=== PATIENT | male | born 1955 | race Caucasian/White ===

== ENCOUNTER 2016-11-30 22:26 | Inpatient (IN) | payer OTHER ==
[~2016-11-30] VITALS: Ht 167.6 cm; Wt 69.5 kg
[2016-12-01] VITALS (12 sets, daily range): BP systolic 122–135; BP diastolic 70–81; PULSE 58–82; RESP 18; Ht 167.6 cm; Wt 69.5 kg
[2016-12-01] MEDS ORDERED: ALBU2.5V3 NEB (01:37)
[2016-12-01] MEDS ORDERED: ADV25050 INHALATION (01:37)
[2016-12-01] MEDS ORDERED: DOCUSATE SODIUM 100 MG CAP PO PRN (02:30)
[2016-12-01] MEDS ORDERED: ZOLPIDEM 5 MG TAB PO PRN (02:30)
[2016-12-01] MEDS ORDERED: LORAZEPAM 0.5 MG TAB PO PRN (02:30)
[2016-12-01] MEDS ORDERED: HYDROCODONE/APAP (5/325) TAB PO PRN (02:30)
[2016-12-01] MEDS ORDERED: NACL 0.9% 3 ML SYG IV SCH (02:30)
[2016-12-01] MEDS ORDERED: ONDANSETRON 4 MG TAB PO PRN (02:30)
[2016-12-01] MEDS ORDERED: ACETAMINOPHEN 325 MG TAB PO PRN (02:30)
[2016-12-01] MEDS: FAMOTIDINE 20 MG TAB PO SCH ×3 (03:02→22:14)
[2016-12-01 08:32] LABS: ABNORMAL IP MESSAGE 1; BASOPHILS % 0.4 % (0.0-2.0); EOSINOPHILS # 0.2 10^3/ul (0.0-0.5); EOSINOPHILS % 2.7 % (0.0-7.0); HEMATOCRIT 42.5 % (42.0-52.0); HEMOGLOBIN 13.7 g/dl (14.0-18.0); LYMPHOCYTES # 1.3 10^3/ul (0.8-2.9); MEAN CORPUSCULAR HEMOGLOBIN 28.3 pg (29.0-33.0); MEAN CORPUSCULAR HGB CONC 32.2 g/dl (32.0-37.0); MEAN CORPUSCULAR VOLUME 87.8 fl (82.0-101.0); MEAN PLATELET VOLUME 13.5 fl (7.4-10.4); MONOCYTE # 0.9 10^3/ul (0.3-0.9); MONOCYTES % 11.7 % (0.0-11.0); NEUTROPHIL # 5.1 10^3/ul (1.6-7.5); NEUTROPHILS % 67.7 % (39.0-77.0); PLATELET COUNT 175 10^3/UL (140-415); POSITIVE DIFF @See below; RED BLOOD COUNT 4.84 10^6/ul (4.70-6.10); RED CELL DISTRIBUTION WIDTH 12.3 % (11.5-14.5); WHITE BLOOD COUNT 7.5 10^3/ul (4.8-10.8)
[2016-12-01] MEDS: ENOXAPARIN 40 MG/0.4 ML SYG SC SCH (08:32)
[2016-12-01 08:57] LABS: ALBUMIN 3.4 g/dl (3.3-4.9); ALBUMIN/GLOBULIN RATIO 1.3; BILIRUBIN,INDIRECT 0.3 mg/dl (0-1.1); BILIRUBIN,TOTAL 0.3 mg/dl (0.2-1.3); CALCIUM 8.5 mg/dl (8.4-10.2); CREATININE 0.88 mg/dl (0.61-1.24)
--- NOTE | 2016-12-01 11:16 | HP ---
Date/Time of Note Date/Time of Note DATE: 12/01/16 TIME: 11:15 Assessment/Plan VTE Prophylaxis VTE Prophylaxis Intervention: LMWH Lines/Catheters IV Catheter Type (from [facility]): Peripheral IV Urinary Cath still in place: No Assessment/Plan Assessment/Plan [facility] 61yo man who suffered a feral cat bite and clawing incident yesterday, with what appears to be a subsequent vaso-vagal incident and mild generalized tonic- clonic seizure. Brief loss of consciousness, but no head or other trauma. Responded well to fluid resuscitation, and no arrhythmia so far on telemetry. * Telemetry observation * IV fluid support * Regular diet * Lovenox for DVT prophylaxis * Rabies vaccination? * Tetanus booster * Dr. Georgi Zarate to see for Infectious Diseases, recommending Unasyn IV * Patient is anxious about getting to work on Friday before his boss leaves town on Friday * Full-code * Disposition will be home with his . Crow Burleson MD PhD [phone] HPI/ROS Admit Date/Time Admit Date/Time Dec 01, 2016 at 00:41 Hx of Present Illness Mr. Aguirre is a healthy 61-year-old man who was breaking up a fight between his cat and a feral cat yesterday afternoon when he suffered several bites by the outside cat to the ulnar aspect of his dominant left hand. He also received claw perforations to the right forearm. He was eating in a food court shortly thereafter when he found himself getting sweaty and lightheaded, and lost consciousness for about a minute with some diffuse shaking. His was able to catch him, so he suffered no head trauma or other injury. There was no fecal or urinary incontinence. He has no history of cardiac disease. He had a couple syncopal episodes more than 20 years ago. On review of systems, no headache, visual change, seizure history, dyspnea, fever, or change in bowel habitus. ROS As above. 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 No smoking. Not a smart phone user. Smoking Status: Never smoker Exam/Review of Systems Vital Signs Vitals Vital Signs Date Time Temp Pulse Resp B/P Pulse Ox O2 Delivery O2 Flow Rate FiO2 12/01/16 08:16 97.7 59 18 126/74 96 12/01/16 04:00 Room Air Exam Constitutional: alert, oriented, well developed Psych: nl mood/affect, no complaints, No anxiety, No confusion, No depression Head: atraumatic, normocephalic Eyes: EOMI, PERRL, nl conjunctiva, nl sclera, No icteric, No nl lids ENMT: mucosa pink and moist, nl external ears & nose Neck: non-tender, supple, No bruits, No jvd, No masses, No nuchal rigidity, No thyromegaly Respiratory: clear to auscultation, normal air movement, No congested cough, No crackles/rales, No diminished breath sounds, No intercostal retraction, No labored breathing, No respirations, No wheezing Cardiovascular: nl pulses, regular rate and rhythm, No bruits, No diastolic murmur, No edema, No gallop, No irregular rhythm, No jugular venous distention (JVD), No murmurs/extra sounds, No rub, No systolic murmur Gastrointestinal: nl liver, spleen, non-tender, soft, No ascites, No bowel sounds, No distended, No firm, No hepatomegaly, No mass , No rebound or guarding, No splenomegaly, No surgical scars, No tender Genitourinary - Male: No CVA tenderness Musculoskeletal: nl extremities to inspection, No joint tenderness, No muscle tone, No muscle weakness, No nl gait and stance, No range of motion, No spine non-tender, No swelling Extremities: edema, normal pulses, other (He had mild to moderate swelling diffusely through the left palm and fingers, with puncture melendez across the ulnar aspect, on the dorsum of the middle finger, and on the right forearm.), tenderness, No calf tenderness, No clubbing, No cyanosis, No palpable cord, No pitting pedal edema Lymph: nl lymph nodes (No axillary or epitrochlear adenopathy) Labs Result Diagram: 12/01/16 0735 12/01/16 0735 Medications Medications Current Medications Lorazepam (Ativan) 0.5 mg Q8H PRN PO ANXIETY; Start 12/01/16 at 02:30 Ondansetron HCl (Zofran Tab) 4 mg Q6H PRN PO NAUSEA AND/OR VOMITING; Start at 02:30 Acetaminophen (Tylenol Tab) 650 mg Q6H PRN PO PAIN LEVEL 1-3 OR FEVER; Start 12/01/16 at 02:30 Acetaminophen/ Hydrocodone Bitart ([place] (5/325)) 1 tab Q6H PRN PO PAIN LEVEL 4 -6; Start 12/01/16 at 02:30 Zolpidem Tartrate (Ambien) 5 mg QHS PRN PO INSOMNIA; Start 12/01/16 at 02:30 Docusate Sodium (Colace) 100 mg Q12H PRN PO CONSTIPATION; Start 12/01/16 at 02 :30 Famotidine (Pepcid) 20 mg Q12 PO Last administered on 12/01/16t 03:02; Admin Dose 20 MG; Start 12/01/16 at 02:30 Enoxaparin Sodium (Lovenox) 40 mg DAILY SC ; Start 12/01/16 at 09:00 KELSI BURLESON M.D. Dec 01, 2016 11:16
[2016-12-01] MEDS: AMPICILLIN/SULB 3 GM/NS (PMX) 100 ML IVPB SCH (23:29)
[2016-12-02] VITALS (9 sets, daily range): BP systolic 126–174; BP diastolic 74–90; PULSE 45–76; RESP 18–20
--- NOTE | 2016-12-02 01:37 | CONS ---
DATE OF ADMISSION: 12/01/2016 DATE OF CONSULTATION: 12/01/2016 INFECTIOUS DISEASE CONSULTATION REASON FOR CONSULTATION: Antibiotic management. HISTORY OF PRESENT ILLNESS: Dillon Aguirre is a 61-year-old male who comes in with multiple wild ca t bites and swelling of his dominant left hand. 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 He noted some swelli ng to the hypothenar area of the left hand which seemed to get better, but about 3 or 4 hours later, he noticed that his hand was bleeding and he developed lightheadedness. According to his , he became syncopal, there was one-minute loss of consciousness. The patient spontaneously felt better after being seated in the chair. He came to the emergency room where his vital signs were normal. His temperature was 36.5. The patient had no other medical problems of note. PAST MEDICAL HISTORY: Operations as outlined. FAMILY HISTORY: Noncontributory. SOCIAL HISTORY: He does not smoke, drink or abuse drugs. ALLERGIES: NONE TO PENICILLIN, SULFA OR FOODS. MEDICATIONS: Per chart. REVIEW OF SYSTEMS: As per HPI. PHYSICAL EXAMINATION: GENERAL: The patient is a well-developed, well-nourished male who is awake, responsive, in no acute distress. VITAL SIGNS: Stable. He is afebrile. SKIN: Without generalized rash. HEENT: Within normal limits. NECK: Supple. LYMPH NODES: None palpable. CHEST: Decreased breath sounds at the bases. HEART: Without murmur or gallop. ABDOMEN: Soft, nontender, without organosplenomegaly or masses. EXTREMITIES: There is moderate swelling of the left hand with multiple puncture wounds noted to the hypothenar region, full range of motion. Right forearm also has puncture wounds with a small amoun t of surrounding erythema. RECTAL AND GENITAL: Deferred. NEUROLOGIC: No focal neurological abnormalities. ANCILLARY DATA: At an outside hospital, his white count was 14.9, H and H of 15.6 and 47.2, platele t count 197,000. BUN and creatinine 15/1.1. An EKG was within normal limits. He had blood culture s done, urinalysis. He was given vancomycin and Unasyn in the hospital and was transferred to [facility] for ongoing care. On admission, his white count was 7.5, H and H 13.7 and 42.5, plat elet count 175,000. BUN and creatinine is 10/0.88. We will get 2 sets of blood cultures, start him back on Unasyn and elevate his hand. We will see if the hand surgeon needs to see him. 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 I will dictate my findings to Dr. Burleson. Dictated By: JASPREET JIM MD, JD/NTS Conf#: [id number] DID#: [id number] CC: KELSI BURLESON MD;*[facility]*
[2016-12-02] MEDS: AMPICILLIN/SULB 3 GM/NS (PMX) 100 ML IVPB SCH ×2 (05:20→11:40)
[2016-12-02] MEDS: ENOXAPARIN 40 MG/0.4 ML SYG SC SCH (08:31)
[2016-12-02] MEDS: FAMOTIDINE 20 MG TAB PO SCH (08:31)
[2016-12-02 13:49] LABS: ABNORMAL IP MESSAGE 1; BASOPHIL # 0.1 10^3/ul (0.0-0.1); BASOPHILS % 0.8 % (0.0-2.0); EOSINOPHILS # 0.3 10^3/ul (0.0-0.5); EOSINOPHILS % 3.3 % (0.0-7.0); HEMATOCRIT 46.4 % (42.0-52.0); HEMOGLOBIN 15.4 g/dl (14.0-18.0); LYMPHOCYTES # 1.7 10^3/ul (0.8-2.9); LYMPHOCYTES % 18.4 % (15.0-51.0); MEAN CORPUSCULAR HEMOGLOBIN 28.7 pg (29.0-33.0); MEAN CORPUSCULAR HGB CONC 33.2 g/dl (32.0-37.0); MEAN CORPUSCULAR VOLUME 86.4 fl (82.0-101.0); MEAN PLATELET VOLUME 13.6 fl (7.4-10.4); MONOCYTE # 1.1 10^3/ul (0.3-0.9); MONOCYTES % 11.8 % (0.0-11.0); NEUTROPHIL # 5.9 10^3/ul (1.6-7.5); NEUTROPHILS % 65.1 % (39.0-77.0); PLATELET COUNT 209 10^3/UL (140-415); POSITIVE DIFF @See below; RED BLOOD COUNT 5.37 10^6/ul (4.70-6.10); RED CELL DISTRIBUTION WIDTH 12.1 % (11.5-14.5); WHITE BLOOD COUNT 9.1 10^3/ul (4.8-10.8)
[2016-12-02 14:23] LABS: CALCIUM 9.2 mg/dl (8.4-10.2); CREATININE 1.01 mg/dl (0.61-1.24)
--- NOTE | 2016-12-03 01:41 | PN ---
DATE: 12/02/2016 INFECTIOUS DISEASE PROGRESS NOTE SUBJECTIVE: No acute changes. The patient is alert, feels good, looks comfortable. Denies pain. ANTIMICROBIALS: He is on Unasyn. PHYSICAL EXAMINATION: GENERAL: Well-nourished, well-developed elderly white man who is alert, in no distress. HEENT: Head atraumatic, normocephalic. Sclerae anicteric. Buccal mucosa pink. NECK: Supple. CHEST: Rise symmetrical. Breath sounds clear. HEART: S1, S2. ABDOMEN: Soft, bowel tones present. EXTREMITIES: Left hand, resolved edema and erythema. There are some scabs present, however, no ben inage. There is some swelling at the knuckle of his 3rd finger, however, patient able to bend his f ingers completely without limitation. ASSESSMENT: Resolved cellulitis of left hand, status post cat bite. PLAN: The patient remains stable. He is on Unasyn and responds to therapy. Anticipate discharge o n oral Augmentin for 5 to 7 more days to complete treatment. Dictated By: JUAN SOTO PROGRAM EVALUATION CONSULTANT for JASPREET NEWSOME/SATHISH Conf#: [id number] DID#: [id number] CC: KELSI ROSARIO MD;*End*
== END 2016-12-02 15:17 | disposition left against medical advice (07) | DRG 603 ==
LOC: MS4 12-01 00:41
PROVIDERS: ADMIT Internal Medicine; ATTEND Internal Medicine
DX: L03.114 Cellulitis of left upper limb (principal); S51.831A Puncture wound without foreign body of right forearm, initial encounter; S61.233A Puncture wound without foreign body of left middle finger without damage to nail, initial encounter; W55.01XA Bitten by cat, initial encounter; Y93.89 Activity, other specified; Y92.89 Other specified places as the place of occurrence of the external cause; Y99.8 Other external cause status
CPT/HCPCS: 80048; 80053; 85025; 87040; J0295; J1650